=== PATIENT | male | born 1950 | race Caucasian/White ===

== ENCOUNTER → 2020-10-10 12:25 | Outpatient (BNVA) | payer MEDICAID, MEDICARE, SELFPAY | PROVIDERS: PCP Internal Medicine; Visit Provider Urology ==

== ENCOUNTER → 2021-04-11 08:49 | Outpatient (BNVA) | payer MEDICARE, MEDICAID, SELFPAY | PROVIDERS: PCP Internal Medicine; Visit Provider Urology | DX: C61 Malignant neoplasm of prostate (principal) | CPT/HCPCS: Q3014 ==

== ENCOUNTER → 2021-10-16 11:25 | Outpatient (BNVA) | payer MEDICARE, MEDICAID, SELFPAY | PROVIDERS: PCP Internal Medicine; Visit Provider Urology | DX: C61 Malignant neoplasm of prostate (principal); N40.1 Benign prostatic hyperplasia with lower urinary tract symptoms; R35.0 Frequency of micturition; R39.15 Urgency of urination | CPT/HCPCS: 51798; 99212 ==

== ENCOUNTER → 2022-04-23 13:29 | Outpatient (BNVA) | payer MEDICARE, MEDICAID, SELFPAY | PROVIDERS: PCP Internal Medicine; Visit Provider Urology | DX: C61 Malignant neoplasm of prostate (principal); N40.1 Benign prostatic hyperplasia with lower urinary tract symptoms; N13.8 Other obstructive and reflux uropathy | CPT/HCPCS: 51798; 99212 ==

== ENCOUNTER → 2022-10-22 13:55 | Outpatient (BNVA) | payer MEDICARE, SELFPAY | PROVIDERS: PCP Internal Medicine; Visit Provider Urology | DX: C61 Malignant neoplasm of prostate (principal) | CPT/HCPCS: 51798; 99212 ==

== ENCOUNTER 2023-04-23 15:41 | Outpatient (AMB) | payer MEDICARE, SELFPAY ==
--- NOTE | 2023-04-23 15:53 | MHC.OFFVIS ---
Intake Intake Visit Reasons: 6m/PSA(set) Intake Note: Patient is Present for Telephone Follow Up Urology Med: Solifenacin Antibiotic Allergy: None Blood Thinner: None Allergies No Known Allergies [No Known Allergies*] Allergy (Verified 10/22/22 14:17) Medication List - Last Reconciled 04/23/23 by Bashir Sharp MD amlodipine 10 mg PO DAILY blood sugar diagnostic (OneTouch Ultra Test strips) As directed glipizide 5 mg PO BID insulin glargine U-300 conc (Toujeo SoloStar U-300 Insulin) units subcut lisinopril 30 mg PO DAILY metformin 1,000 mg PO BID pioglitazone 30 mg PO DAILY rosuvastatin 20 mg PO BEDTIME simvastatin 10 mg PO BEDTIME solifenacin 5 mg PO DAILY 90 days HPI HPI Comments History of Present Illness Details Pritesh is a very pleasant male. He is a patient of Dr. Frost. He is seen for the following urologic conditions - prostate cancer - urinary urge Telemedicine Evaluation 15 min Consultation [employer] Becky Video attempted 10/20 PSA 0.2, 04/21 0.2 Will use VESIcare on as needed basis Otherwise relatively good bladder control Continue with 6 month PSA check for high-grade disease Prostate cancer [place] 8. Initial therapy radiation with 2 years hormone therapy 2014 Here for interval review Prostate cancer diagnosed by Dr. De Dios 2014 [place] score diagnosis 8 Initial therapy 2 years hormone therapy with radiation Associated symptoms of urgency and frequency had been on VESIcare in the past Laboratories - 09/17 0.2, 04/19 0.2, 04/20 0.2, 10/20 0.2, 04/21 0.2 Plan - continue to follow Q 6 months [facility] Medical History HTN (hypertension) Diabetes mellitus, type II Nocturia Prostate tumor Prostate cancer Surgical History History of prostate biopsy Review of Systems Const All systems reviewed & are unremarkable except as noted in HPI and below Reports no additional complaints Resp Reports no additional complaints GI Reports no additional complaints Reports as per HPI Musc Reports no additional complaints Physical Exam Telemedicine evaluation Appropriate responses Regular breathing rate and rhythm HEENT Head: Yes normal to inspection Ears: hearing grossly normal bilaterally Eyes General: appearance normal, both eyes and all related structures Neck Neck: Yes normal visual inspection Chest Chest palpation & inspection: normal inspection of the chest Resp Effort & Inspection: normal respiratory effort and able to speak in complete sentences Assessment & Plan Assessment & Plan (1) BPH loc w urin obs/LUTS: Code(s): N40.1 - Benign prostatic hyperplasia with lower urinary tract symptoms (2) Prostate cancer: Comment: High-grade, external beam radiation 2014 Code(s): C61 - Malignant neoplasm of prostate Plan Six month follow-up PSA Orders: Orders Prostate Specific Antigen 6 Months C61 - Malignant neoplasm of prostate Medications: Refilled solifenacin 5 mg PO DAILY 90 tabs 1RF 90 days Patient Instructions: Imaging studies, laboratory and physical exam results were discussed and reviewed in detail. No major barriers to patient understanding were identified. An opportunity to ask questions regarding the treatment plan was provided. All questions were answered. The patient expressed understanding and agreement with the above treatment plan. The patient is aware they should contact our office by phone for worsening of their current condition or the appearance of new urologic symptoms. Compliance is encouraged with any medications and followup testing that is ordered. It is a privilege to participate in the urologic care of your patient. If you have any questions or concerns regarding treatment for the above conditions, or other urologic issues, please do not hesitate to contact me. The office telephone contact is [phone]. This note is constructed using voice recognition software. While every effort has been made to ensure accuracy validation architect errors may have been included. Yours sincerely, Dr Bashir Sharp MD, [facility] - Urology Providers of Expert, Compassionate Care for the Genitourinary System Telehealth Telehealth Location of provider rendering services: practice address Location of patient: address on file Patient Identification confirmed using: Name, : Yes Telehealth method: video Patient verbally consented to treatment: Yes Patient verbally consented to billing insurance company: Yes Patient informed of any privacy concerns related to visit: Yes Coding Level of Care Code Tele Est Pt Level 3 (71152) Diagnoses BPH loc w urin obs/LUTS N40.1 Prostate cancer C61
== END 2023-04-23 16:00 | disposition home or self-care (01) ==
LOC: HO.HUSH 15:41
PROVIDERS: PCP Internal Medicine; Visit Provider Urology
DX: N40.1 Benign prostatic hyperplasia with lower urinary tract symptoms (principal); C61 Malignant neoplasm of prostate
CPT/HCPCS: 99213

== ENCOUNTER → 2023-04-23 15:41 | Outpatient (BNVA) | payer MEDICARE, SELFPAY | PROVIDERS: PCP Internal Medicine; Visit Provider Urology ==

== ENCOUNTER 2023-10-24 11:33 | Outpatient (AMB) | payer MEDICARE, SELFPAY ==
--- NOTE | 2023-10-24 11:35 | A.OFFVIS_ITS ---
Intake Visit Reasons: 6M PSA(SET)confirmed Intake Note: Patient is Present for PVR/ Urology Med: Solifenacin (Patient states that he is not taking this medication) Antibiotic Allergy:None Blood Thinner: None Last PVR: 0 Todays PVR: 17 Patient states that he still gets up 3-4 times during the night. Allergies No Known Allergies [No Known Allergies*] Allergy (Verified 10/22/22 14:17) HPI Comments Details: Pritesh is a very pleasant male. He is a patient of Dr. Frost. 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 Initial therapy radiation with 2 years hormone therapy 2014 Here for interval review Prostate cancer diagnosed by Dr. De Dios 2014 [place] score diagnosis 8 Initial therapy 2 years hormone therapy with radiation - therapy completed 11/11 Associated symptoms of urgency and frequency had been on VESIcare in the past Laboratories - 09/17 0.2, 04/19 0.2, 04/20 0.2, 10/20 0.2, 04/21 0.2 Plan - continue to follow Q 6 months [facility] Medical History HTN (hypertension) Diabetes mellitus, type II Nocturia Prostate tumor Prostate cancer Surgical History History of prostate biopsy Review of Systems Const Denies chills and Denies fever(s) Card Reports no additional complaints and Denies syncope Resp Denies cough GI Denies abdominal pain and Denies heartburn Reports as per HPI and Denies change in libido Neuro Denies syncope Psych Denies change in libido Endo Denies change in libido Physical Exam Const General: cooperative, healthy appearing, comfortable and no acute distress Orientation/consciousness: patient oriented x3 HEENT Face and sinus: Yes normal facial exam Mouth: moist mucous membranes Neck Neck: Yes normal visual inspection, Yes full ROM and Yes trachea midline Chest Chest palpation & inspection: normal inspection of the chest Resp Effort & Inspection: normal respiratory effort, able to speak in complete sentences and no respiratory distress GI Inspection: Yes normal to inspection Back/Spine/Pelvis Cervical Spine: normal cervical lordosis Thoracic/Lumbar Spine: thoracic and lumbar spine normal to inspection Skin General skin exam: no rashes or lesions noted Neuro General: patient oriented x3, gait normal, tone normal and moves all extremities Extrem General: Yes normal to inspection and Yes capillary refill normal Office Procedures Post Void Residual Post Residual Void Post Void Residual (PVR): 17 80686-Qnid Void Residual by ultrasound Assessment & Plan Assessment & Plan (1) Prostate cancer: Comment: High-grade, external beam radiation 2014 Code(s): C61 - Malignant neoplasm of prostate Category: Medical (2) Bladder instability: Code(s): N32.89 - Other specified disorders of bladder Category: Medical Plan Six-month follow-up PSA Orders: Orders AMB Post Void Residual by ultrasound Today N40.1 - Benign prostatic hyperplasia with lower urinary tract symptoms Medications: New vibegron 75 mg PO DAILY 30 days 30 tabs 1RF N32.89 - Other specified disorders of bladder Patient Instructions: Imaging studies, laboratory and physical exam results were discussed and reviewed in detail. No major barriers to patient understanding were identified. An opportunity to ask questions regarding the treatment plan was provided. All questions were answered. The patient expressed understanding and agreement with the above treatment plan. The patient is aware they should contact our office by phone for worsening of their current condition or the appearance of new urologic symptoms. Compliance is encouraged with any medications and followup testing that is ordered. It is a privilege to participate in the urologic care of your patient. If you have any questions or concerns regarding treatment for the above conditions, or other urologic issues, please do not hesitate to contact me. The office telephone contact is [phone]. This note is constructed using voice recognition software. While every effort has been made to ensure accuracy poultry hatchery man errors may have been included. Yours sincerely, Dr Bashir Sharp MD, [facility] - Urology Providers of Expert, Compassionate Care for the Genitourinary System Coding Level of Care Code Est Pt Level 4 (92134) Diagnoses Prostate cancer C61 Bladder instability N32.89 CPT Codes Post Residual Void - PVR CPT Code: 18643-Yidp Void Residual by ultrasound ([id number])
== END 2023-10-24 11:50 | disposition home or self-care (01) ==
PROVIDERS: PCP Internal Medicine; Visit Provider Urology
DX: C61 Malignant neoplasm of prostate (principal); N32.89 Other specified disorders of bladder
CPT/HCPCS: 99213

== ENCOUNTER → 2023-10-24 11:33 | Outpatient (BNVA) | payer MEDICARE, SELFPAY | PROVIDERS: PCP Internal Medicine; Visit Provider Urology | DX: C61 Malignant neoplasm of prostate (principal); N32.89 Other specified disorders of bladder; N40.1 Benign prostatic hyperplasia with lower urinary tract symptoms; R39.15 Urgency of urination | CPT/HCPCS: 51798; 99212 ==

== ENCOUNTER 2024-04-13 09:45 | Outpatient (AMB) | payer MEDICARE, SELFPAY ==
--- NOTE | 2024-04-13 09:41 | MHC.OFFVIS ---
Intake Visit Reasons: 6M PSA(set) Intake Note: Patient is present for 6M F/U PSA Urology Medication:SOLIFENACIN, VIBEGRON Antibiotic Allergy:NONE Blood Thinner:NONE Roll On Man Required: No Allergies No Known Allergies [No Known Allergies*] Allergy (Verified 04/13/24 09:42) HPI Comments Details: Pritesh is a very pleasant male. He is a patient of Dr. Frost. 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 Initial therapy radiation with 2 years hormone therapy 2014 Here for interval review Prostate cancer diagnosed by Dr. De Dios 2014 [place] score diagnosis 8 Initial therapy 2 years hormone therapy with radiation - therapy completed 11/11 Associated symptoms of urgency and frequency had been on VESIcare in the past Laboratories - 09/17 0.2, 04/19 0.2, 04/20 0.2, 10/20 0.2, 04/21 0.2 Plan - continue to follow Q 6 months [facility] Medical History HTN (hypertension) Diabetes mellitus, type II Nocturia Prostate tumor Prostate cancer Surgical History History of prostate biopsy Review of Systems Const All systems reviewed & are unremarkable except as noted in HPI and below Reports no additional complaints Resp Reports no additional complaints GI Reports no additional complaints Reports as per HPI Musc Reports no additional complaints Physical Exam Telemedicine evaluation Appropriate responses Regular breathing rate and rhythm HEENT Head: Yes normal to inspection Ears: hearing grossly normal bilaterally Eyes General: appearance normal, both eyes and all related structures Neck Neck: Yes normal visual inspection Chest Chest palpation & inspection: normal inspection of the chest Resp Effort & Inspection: normal respiratory effort and able to speak in complete sentences Telehealth Telehealth Telehealth Platform: [employer] Location of provider rendering services: practice address Location of patient: address on file Patient Identification confirmed using: Name, : Yes Telehealth method: video Patient verbally consented to treatment: Yes Patient verbally consented to billing insurance company: Yes Patient informed of any privacy concerns related to visit: Yes Minutes spent on Phone/Video with Pt.: 15 Assessment & Plan Assessment & Plan (1) Bladder instability: Code(s): N32.89 - Other specified disorders of bladder Category: Medical (2) Prostate cancer: Comment: High-grade, external beam radiation 2014 Code(s): C61 - Malignant neoplasm of prostate Category: Medical (3) BPH loc w urin obs/LUTS: Code(s): N40.1 - Benign prostatic hyperplasia with lower urinary tract symptoms Category: Medical Plan Six-month follow-up PSA office Orders: Orders Prostate Specific Antigen 6 Months C61 - Malignant neoplasm of prostate Medications: Changed From vibegron 75 mg PO DAILY 30 days 30 tabs 1RF N32.89 - Other specified disorders of bladder To vibegron 75 mg PO DAILY 90 days 90 tabs 1RF N32.89 - Other specified disorders of bladder Refilled solifenacin 5 mg PO DAILY 90 days 90 tabs 1RF Patient Instructions: Imaging studies, laboratory and physical exam results were discussed and reviewed in detail. No major barriers to patient understanding were identified. An opportunity to ask questions regarding the treatment plan was provided. All questions were answered. The patient expressed understanding and agreement with the above treatment plan. The patient is aware they should contact our office by phone for worsening of their current condition or the appearance of new urologic symptoms. Compliance is encouraged with any medications and followup testing that is ordered. It is a privilege to participate in the urologic care of your patient. If you have any questions or concerns regarding treatment for the above conditions, or other urologic issues, please do not hesitate to contact me. The office telephone contact is [phone]. This note is constructed using voice recognition software. While every effort has been made to ensure accuracy manufacturing quality inspector errors may have been included. Yours sincerely, Dr Bashir Sharp MD, [facility] - Urology Providers of Expert, Compassionate Care for the Genitourinary System Coding Level of Care Code Tele Est Pt Level 3 (33522) Diagnoses Bladder instability N32.89 Prostate cancer C61 BPH loc w urin obs/LUTS N40.1
== END 2024-04-13 13:42 | disposition home or self-care (01) ==
LOC: HO.HUSH 09:45
PROVIDERS: PCP Internal Medicine; Visit Provider Urology
DX: N32.89 Other specified disorders of bladder (principal); C61 Malignant neoplasm of prostate
CPT/HCPCS: 99213

== ENCOUNTER → 2024-04-13 09:45 | Outpatient (BNVA) | payer MEDICARE, SELFPAY | PROVIDERS: PCP Internal Medicine; Visit Provider Urology ==

== ENCOUNTER 2024-10-12 11:42 | Outpatient (AMB) | payer MEDICARE, SELFPAY ==
--- NOTE | 2024-10-12 11:45 | MHC.OFFVIS ---
Intake Visit Reasons: 6m/PSA Intake Note: Patient is present for 6M/PSA Urology Medication:SOLIFENACIN,VIBEGRON Antibiotic Allergy:NONE Blood Thinner:NONE Towel Folder Required: No Allergies No Known Allergies [No Known Allergies*] Allergy (Verified 10/12/24 11:46) HPI Comments Details: Pritesh is a very pleasant male. He is a patient of Dr. Frost. He is seen for the following urologic conditions - prostate cancer - urinary urge with bladder stability Six-month follow-up Current bladder instability treated with combination Gemtesa and solifenacin primarily for nocturia greater than 3 times per night Uses Gemtesa intermittently with good benefit 10/20 PSA 0.2, 04/21 0.2, 10/20 0.2, 04/22 0.2 Continues with q.6 month PSA check out to 10 years Bladder instability in setting of radiation cystitis with insulin-dependent diabetes Secondary to radiation cystitis Responds well to anticholinergic Uses physical on an as-needed basis Prostate cancer [place] 8. Initial therapy radiation with 2 years hormone therapy 2014 Here for interval review Prostate cancer diagnosed by Dr. De Dios 2014 [place] score diagnosis 8 Initial therapy 2 years hormone therapy with radiation - therapy completed 11/11 Associated symptoms of urgency and frequency had been on VESIcare in the past Laboratories - 09/17 0.2, 04/19 0.2, 04/20 0.2, 10/20 0.2, 04/21 0.2 Plan - continue to follow Q 6 months [facility] Medical History HTN (hypertension) Diabetes mellitus, type II Nocturia Prostate tumor Prostate cancer Surgical History History of prostate biopsy Review of Systems Const Denies chills and Denies fever(s) Card Reports no additional complaints and Denies syncope Resp Denies cough GI Denies abdominal pain and Denies heartburn Reports as per HPI and Denies change in libido Neuro Denies syncope Psych Denies change in libido Endo Denies change in libido Physical Exam Const General: cooperative, healthy appearing, comfortable and no acute distress Orientation/consciousness: patient oriented x3 HEENT Face and sinus: Yes normal facial exam Mouth: moist mucous membranes Neck Neck: Yes normal visual inspection, Yes full ROM and Yes trachea midline Chest Chest palpation & inspection: normal inspection of the chest Resp Effort & Inspection: normal respiratory effort, able to speak in complete sentences and no respiratory distress GI Inspection: Yes normal to inspection Back/Spine/Pelvis Cervical Spine: normal cervical lordosis Thoracic/Lumbar Spine: thoracic and lumbar spine normal to inspection Skin General skin exam: no rashes or lesions noted Neuro General: patient oriented x3, gait normal, tone normal and moves all extremities Extrem General: Yes normal to inspection and Yes capillary refill normal Results AMB Urinalysis, Automated UA Leukoctes 0 Chuy/uL Last Edit by SALAZAR Beard on 10/12/24 11:57 UA Nitrite Negative Last Edit by Nelson Brown CCM on 10/12/24 11:57 UA Urobilinogen 0.2 mg/dL Last Edit by Nelson Brown CCM on 10/12/24 11:57 UA Protein 0 mg/dL Last Edit by Nelson Brown [facility] on 10/12/24 11:57 UA pH 6.0 Last Edit by Nelson Brown [facility] on 10/12/24 11:57 UA Blood 0 Virgil/uL Last Edit by Nelson Brown CCM on 10/12/24 11:57 UA Specific [place] 1.020 Last Edit by Nelson Brown CCM on 10/12/24 11:57 UA Ketone Negative Last Edit by Nelson Brown CCM on 10/12/24 11:57 UA Bilirubin 0 mg/dL Last Edit by Nelson Brown [facility] on 10/12/24 11:57 UA Glucose 0 mg/dL Last Edit by Nelson Brown [facility] on 10/12/24 11:57 Results Reviewed Results Reviewed: Laboratory Last Values Urine pH (Auto) 6.0 10/12/24 11:57 Specific [place] (Auto) 1.020 10/12/24 11:57 Urine Protein (Auto) 0 mg/dL 10/12/24 11:57 Glucose (UA)(Auto) 0 mg/dL 10/12/24 11:57 Urine Ketones (Auto) Negative 10/12/24 11:57 Urine Blood (Auto) 0 Virgil/uL 10/12/24 11:57 Urine Nitrite (Auto) Negative 10/12/24 11:57 Urine Bilirubin (Auto) 0 mg/dL 10/12/24 11:57 Urine Urobilinogen (Auto) 0.2 mg/dL 10/12/24 11:57 Leukocyte Esterase (Auto) 0 Chuy/uL 10/12/24 11:57 Assessment & Plan Assessment & Plan (1) Prostate cancer: Comment: High-grade, external beam radiation 2014 Code(s): C61 - Malignant neoplasm of prostate Category: Medical (2) Bladder instability: Code(s): N32.89 - Other specified disorders of bladder Category: Medical (3) Nocturia more than twice per night: Code(s): R35.1 - Nocturia Category: Medical (4) 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 While every effort has been made to ensure accuracy knitting inspector errors may have been included. Imaging studies, laboratory and physical exam results were discussed and reviewed in detail. No major barriers to patient understanding were identified. An opportunity to ask questions regarding the treatment plan was provided. All questions were answered. The patient expressed understanding and agreement with the above treatment plan. The patient is aware they should contact our office by phone for worsening of their current condition or the appearance of new urologic symptoms. Compliance is encouraged with any medications and followup testing that is ordered. It is a privilege to participate in the urologic care of your patient. If you have any questions or concerns regarding treatment for the above conditions, or other urologic issues, please do not hesitate to contact me. The office telephone contact is [phone]. Sincerely, Dr Bashir Sharp MD, [facility] - Urology Compassionate Specialist Care for the Genitourinary System Coding Level of Care Code Est Pt Level 3 (06448) Complex EM visit Add On G2211 Diagnoses Prostate cancer C61 Bladder instability N32.89 Nocturia more than twice per night R35.1 Radiation cystitis N30.40
--- OUTSIDE RECORDS SUMMARY | 2024-10-12 14:33 | XMS_ITS ---
Author Name [facility] Organization Unknown History of Medication Use Medication Directions Dispensed Refills Start Date End Date Stat metFORMIN (GLUCOPHAGE) 1000 MG tablet Take 1 tablet (1,000 mg total) by mouth 2 (two) times a day with meals. 09/14/2022 active rosuvastatin (CRESTOR) 20 MG tablet Take 1 tablet (20 mg total) by mouth daily. 09/14/2022 active Toujeo SoloStar 300 UNIT/ML prefilled pen injection ADMINISTER 25 UNITS UNDER THE SKIN EVERY NIGHT 11/08/2022 active ZeolifeTouch Ultra test strip Check 3times a day 07/14/2020 active Problems Problem Status Onset Date Problem Type Date of Resolution Source Colon cancer screening active 2022-04-24 ProblemAct [facility] Screening for abdominal aortic aneurysm active 2022-04-24 ProblemAct [facility] Essential hypertension active 2020-08-15 ProblemAct [facility] Leukocytosis, unspecified type active EncounterDiagnosisAct [facility] CCT Need for pneumococcal vaccination active 2022-04-24 ProblemAct [facility] History of prostate cancer active 2022-04-24 ProblemAct [facility] Dyslipidemia active 2022-04-24 ProblemAct [facility] DM type 2 with diabetic mixed hyperlipidemia active 2022-04-24 ProblemAct [facility] Immunizations Vaccine Date Source Lot Number Status Pneumococcal Conjugate 20-Valent 04/24/2022 [facility] [id number] completed Encounters Encounter Type Encounter Reason Primary Diagnosis Location Date Ambulatory Type 2 diabetes mellitus with other specified complication Type 2 diabetes mellitus with other specified complication [facility] 08/17/2024 Ambulatory Type 2 diabetes mellitus with other specified complication Type 2 diabetes mellitus with other specified complication [facility] 04/12/2024 Ambulatory Type 2 diabetes mellitus with other specified complication Type 2 diabetes mellitus with other specified complication [facility] 12/10/2023 Ambulatory Type 2 diabetes mellitus with other specified complication Type 2 diabetes mellitus with other specified complication [facility] 08/08/2023 Ambulatory [facility] 09/18/ 2023 Ambulatory Type 2 diabetes mellitus with other specified complication Type 2 diabetes mellitus with other specified complication [facility] 03/11/2023 Ambulatory Encounter for ge neral adult medical examination without abnormal findings [email or web address] 11/08/2022 Ambulatory Essential (prima ry) hypertension [email or web address] 04/24/2022 Ambulatory Encounter for ge neral adult medical examination without abnormal findings [facility] 09/11/2021 Ambulatory Type 2 diabetes mellitus without complications [facility] 08/13/2021 Ambulatory Male erectile dysfunction, unspecified [facility] 04/12/2021 Care Team Organization Name Specialty Phone Email Start Date End [facility] 07/20/2023 [facility] 03/17/2023 [email or web address] 11/08/202203/11 [facility] 11/08/202209/25 [email or web address] 04/24/2022 09/26/19 [email or web address] 04/12/2021 [email or web address] 04/12/2021 04/24/20 22 [facility]
--- OUTSIDE RECORDS SUMMARY | 2024-10-12 14:33 | XMS_ITS | Encounter Summary ---
[place] [address] Care Team Providers Care Procurement Forester Name Role Phone Angelika Man MD Primary Care Provider +1- [phone] Encounter Details Date Type Department Care Team (Late Contact Info) Description 04/26/2024 Scanned Document [address] [phone] Angelika Man MD [address] [place] [address] Social History Tobacco Use Types Packs/Day Years Used Date Smoking Tobacco: Former Smokeless Tobacco: Former Comments:quit 30 years Alcohol Use Standard Drinks/Week Comments Yes 0 (1 standard drink = 0.6 oz pur e alcohol) rare PHQ-2 Answer Date Recorded PHQ-2 Total Score 0 11/08/2022 Sex and Gender Information Value Date Recorded Sex Assigned at Not on file Gender Identity Not on file Sexual Orientation Not on file documented as of this encounter Plan of Treatment Upcoming Encounters Date Type Department Care Team (Late Contact Info) Description 12/15/2024 2:30 PM EDT Office Visit [address] [phone] Angelika Man MD [address] [place] [phone] 12/20/2024 1:15 PM EDT Consult [facility] Endocrinology [place] [address] [place] [address] Angelika Man MD [address] [place] [address] Jamshid Tom MD [address] [place] [address] documented as of this encounter Visit Diagnoses Not on filedocumented in this encounter Care Teams Procurement Forester Relationship Specialty Start Date End Date Angelika Man MD [address] [place] [address] PCP - General Internal Medicine 11/08/22 documented as of this encounter
--- OUTSIDE RECORDS SUMMARY | 2024-10-12 14:33 | XMS_ITS | Encounter Summary ---
[place] [address] Care Team Providers Care Drum Stock Clerk Name Role Phone Angelika Man MD Primary Care Provider +1- [phone] Reason for Visit * Reason Comments ac patient needs scheduling Encounter Details Date Type Department Care Team (Late st Contact Info) Description 08/23/[address] [phone] Provider, Generic ac patient needs scheduling Social History Tobacco Use Types Packs/Day Years [...] on file documented as of this encounter Miscellaneous Notes * Telephone Encounter - Roberto Carlos Romo - 08/26/2024 10:53 AM EST Patient declined scheduling. documented in this encounter Plan of Treatment Upcoming Encounters Date Type Department Care Team (Late Contact Info) Description 12/15/2024 2:30 PM EDT Office Visit [address] [place] [phone] Angelika Man MD [address] [place] [phone] 12/20/2024 1:15 PM EDT Consult [facility] Endocrinology [place] [address] [place] [phone] Angelika Man MD [address] [place] [address] Jamshid Tom MD [address] [place] [address] documented as of this encounter Visit Diagnoses Not on filedocumented in this encounter Care Teams Drum Stock Clerk Relationship Specialty Start Date End Date Angelika Man MD [address] [place] [address] PCP - General Internal Medicine 11/08/22 documented as of this encounter
--- OUTSIDE RECORDS SUMMARY | 2024-10-12 14:33 | XMS_ITS | Encounter Summary ---
Author Organization [place] [id number] Care Team Providers Care Retail Stock Clerk Name Role Phone Angelika Man MD Primary Care Provider +1- [phone] Reason for Visit * Reason Comments Appointment Encounter Details Date Type Department Care Team (Late Contact Info) Description 04/12/2024 Telephone [facility] [address] [place] [address] Jamshid Tom MD [address] [place] [address] Appointment Social History Tobacco Use Types Packs/Day Years [...] Description 12/15/2024 2:30 PM EDT Office Visit [address] [phone] Angelika Man MD [address] [place] [address] 12/20/2024 1:15 PM EDT Consult [facility] Endocrinology [place] [address] [place] [address] Angelika Man MD [address] [place] [address] Jamshid Tom MD [address] [place] [address] documented as of this encounter Visit Diagnoses Not on filedocumented in this encounter Care Teams Retail Stock Clerk Relationship Specialty Start Date End Date Angelika Man MD [address] [place] [address] PCP - General Internal Medicine 11/08/22 documented as of this encounter
--- OUTSIDE RECORDS SUMMARY | 2024-10-12 14:33 | XMS_ITS | Clinical Summary ---
Author Organization [facility] Address [address] [place] [address] Care Team Providers Care Mobile Mechanic Name Role Phone Angelika Man MD Primary Care Provider +1- [phone] Allergies No known active allergies Medications Medication Sig Dispensed Refills Start Date End Date Status Lancets (OneTouch Delica Plus [id number]) Misc 07/14/2020 Active Insulin Pen Needle 32G X 4 MM MiscIndications:Type 2 diabetes mellitus without complication, with long-term current use of insulin (HCC) Use every night. 100 pen needle 2 03/16/2021 Active OneTouch Ultra test stripIndications:DM type 2 with diabetic mixed hyperlipidemia (HCC) Check 3 times a day 300 test strip 3 09/16/2023 Active glipiZIDE (GLUCOTROL) 5 MG tabletIndications:Ty pe 2 diabetes mellitus without complication, with long-term current use of insulin (HCC),Essential hypertension TAKE 1 TABLET(5 MG) BY MOUTH TWICE DAILY BEFORE MEALS 180 tablet 2 02/24/2024 Active lisinopril (PRINIVIL,ZeSTRIL) 30 MG tabletIndications:Ty pe 2 diabetes mellitus without complication, with long-term current use of insulin ([facility]),Essential hypertension TAKE 1 TABLET(30 MG) BY MOUTH DAILY 90 tablet 2 02/24/2024 Active cephalexin (KEFLEX) 500 MG capsule Take 1 capsule (500 mg total) by mouth 4 (four) times a day. 04/09/2024 Active amLODIPine (NORVASC) 10 MG tabletIndications:Es sential hypertension TAKE 1 TABLET(10 MG) BY MOUTH DAILY 90 tablet 1 05/24/2024 Active Aspirin Low Dose 81 MG EC tabletIndications:Es sential hypertension,Type 2 diabetes mellitus without complication, with long-term current use of insulin (HCC) TAKE ONE TABLET BY MOUTH DAILY. 90 tablet 2 05/24/2024 Active Continuous Glucose Clinical Unit Coordinator (Dexcom G7 Clinical Unit Coordinator) DeviceIndications:Ty pe 2 diabetes mellitus with other specified complication, unspecified whether detention insulin use (HCC) Use with sensor 1 each 08/23/2024 Active Toujeo SoloStar 300 UNIT/ML prefilled pen injectionIndications :Type 2 diabetes mellitus without complication, with long-term current use of insulin ([facility]) ADMINISTER 25 UNITS UNDER THE SKIN EVERY NIGHT 4.5 mL 3 08/26/2024 Active rosuvastatin (CRESTOR) 20 MG tabletIndications:Ty pe 2 diabetes mellitus without complication, with long-term current use of insulin ([facility]),Essential hypertension,Other hyperlipidemia TAKE 1 TABLET(20 MG) BY MOUTH DAILY 90 tablet 1 08/26/2024 Active pioglitazone (ACTOS) 30 MG tabletIndications:Ty pe 2 diabetes mellitus without complication, with long-term current use of insulin ([facility]),Essential hypertension TAKE 1 TABLET(30 MG) BY MOUTH DAILY 90 tablet 08/26/2024 Active metFORMIN (GLUCOPHAGE) 1000 MG tabletIndications:Ty pe 2 diabetes mellitus without complication, with long-term current use of insulin ([facility]),Essential hypertension TAKE 1 TABLET(1000 MG) BY MOUTH TWICE DAILY WITH MEALS 180 tablet 1 08/26/2024 Active Continuous Glucose Sensor (Dexcom G7 Sensor) MiscIndications:Type 2 diabetes mellitus with other specified complication, unspecified whether information systems planner insulin use (HCC) Use with credit review analyst 3 each 5 09/14/2024 Active Active Problems Problem Noted Date Diagnosed Date DM type 2 with diabetic mixed hyperlipidemia Assessment & Plan (04/24/2022 2:05 PM EDT): Eye exam done by [employer] in [place].no reported retinopathy. Will request fundal exam report to be sent to me at next exam in Jun 2022 Dyslipidemia 04/24/2022 History of prostate cancer 04/24/2022 Assessment & Plan (04/24/2022 1:57 PM EDT): Remains cancer free since rx with radiation 6 years ago. Sees urology/Dr. Stevenson in [place] every 6 months for EDWIN and labs. Need for influenza vaccination 04/24/2022 Assessment & Plan (04/24/2022 2:00 PM EDT): Reports already having received the vaccine at local pharmacy. Colon cancer screening 04/24/2022 Assessment & Plan (04/24/2022 2:02 PM EDT): Reports having had a colonoscopy in 2018 through [facility] and was told he did not need a repeat study. Screening for abdominal aortic aneurysm 04/24/20 Assessment & Plan (04/24/2022 2:05 PM EDT): Test ordered. Essential hypertension 08/15/2020 Resolved Problems Problem Noted Date Diagnosed Date Resolved Date Need for pneumococcal vaccination 04/24/2022 09/10/2023 Encounters Date Type Department Care Team Description 09/09/[address] [phone] Angelika Man MD Type 2 diabetes mellitus with other specified complication, unspecified whether information systems planner insulin use (HCC) 08/25/[address] [address] Angelika Man MD Type 2 diabetes mellitus without complication, with long-term current use of insulin (HCC); Essential hypertension; Other hyperlipidemia 08/23/[address] [phone] Angelika Man MD 08/23/[address] [address] Provider, Generic ac patient needs scheduling 08/23/2024 Orders Only [address] [phone] Angelika Man MD Type 2 diabetes mellitus with other specified complication, unspecified whether information systems planner insulin use (HCC) (Primary Dx) 08/17/2024 3:30 PM EST Office Visit [address] [place] [address] Angelika Man MD Type 2 diabetes mellitus with other specified complication, unspecified whether detention insulin use (HCC) (Primary Dx); Essential hypertension; Hypercholesterolemia; Screening for AAA (abdominal aortic aneurysm) 08/17/2024 Travel 08/11/2024 Orders Only [address] [phone] Angelika Man MD 08/04/[address] [place] [address] Angelika Man MD Referral from Last 3 Months Immunizations Name Administration Dates Next Due Pneumococcal Conjugate 20-Valent 04/24/2022 Family History Medical History Relation Name Comments Heart attack Father Ovarian cancer Mother Relation Name Status Comments Father Mother Social History Tobacco Use Types Packs/Day Years Used Date Smoking Tobacco: Former Smokeless Tobacco: Former Tobacco Cessation:Counseling Given: Not Answered Comments:quit 30 years Alcohol Use Standard Drinks/Week Comments Yes 0 (1 standard drink = 0.6 oz pur e alcohol) rare PHQ-2 Answer Date Recorded PHQ-2 Total Score 0 11/08/2022 Sex and Gender Information Value Date Recorded Sex Assigned at Not on file Gender Identity Not on file Sexual Orientation Not on file Last Filed Vital Signs Vital Sign Reading Time Taken Comments Blood Pressure 138/70 08/17/2024 3:11 PM EST Pulse 68 08/17/2024 3:11 PM EST Temperature 36.6 ??C (97.9 ??F) 08/17/2024 3:11 PM ES T Respiratory Rate 16 08/17/2024 3:11 PM EST Oxygen Saturation 96% 08/17/2024 3:11 PM EST Inhaled Oxygen Concentration - - Weight 79.7 kg (175 lb 9.6 oz) 08/17/2024 3:11 P M EST Height 180.3 cm (5' 10.98 ) 08/17/2024 3:[address] Body Mass Index 24.5 08/17/2024 3:11 PM EST Plan of Treatment Upcoming Encounters Date Type Department Care Team (Late st Contact Info) Description 12/15/2024 2:30 PM EDT Office Visit [facility] [place] [address] [place] [phone] Angelika Man MD [address] [place] [address] 12/20/2024 1:15 PM EDT Consult [facility] Endocrinology [place] [address] [place] [phone] Angelika Man MD [address] [place] [address] Jamshid Tom MD [address] [place] [address] Health Maintenance Due Date Last Done Comments Hepatitis C Virus Screening 1951 Ophthalmology Exam 1961 DTaP/Tdap/Td Vaccines (1 - Tdap) 1970 Zoster (Shingles) Vaccine (1 of 2) 2001 RSV Vaccine 60 years and older and Patients (1 - Risk 60-74 years 1-dose series) 2011 Abdominal Aortic Aneurysm (AAA) Screening 2016 Diabetic Self-Management Training (DSMT) 08/15/2020 Annual Wellness Visit 11/09/2023 11/08/2022 , 09/11/2021, 09/05/2020 Physical 11/09/2023 11/08/2022, 08/28, 09/05/2020 Influenza Vaccine 01/29/2024 COVID-19 Vaccine ( season) 2024 Medical Nutrition Therapy (MNT) 06/30/2024 Hemoglobin A1C 07/07/2024 04/06/2024, 11/28, 08/08/2023, Additional history exists Lipid Panel 12/04/2024 12/05/2023, 07/0 11/2022, 04/04/2021 Microalbumin/Creatinine Ratio Urine 12/04/2024 12/05/2023 Creatinine with GFR 04/06/2025 04/06/2024, 12/05/2023, 01/02/2023, Additional history exists Foot Exam 08/17/2025 08/17/2024, 07/31, 04/24/2022 Colonoscopy 07/04/2027 07/04/2017 (Prev iously Completed) Pneumococcal Vaccines 50+ Completed 04/24/2022 Hepatitis B Vaccines Aged Out No long er eligible based on patient's age to complete this topic Procedures Procedure Name Priority Date/Time Associated Diagnosis Comments HEMOGLOBIN A1C Routine 04/06/2024 3:07 PM EDT Type 2 diabetes mellitus with other specified complication, unspecified whether detention insulin use (HCC) COMPREHENSIVE METABOLIC PANEL Routine 04/06/2024 3:07 PM EDT Type 2 diabetes mellitus with other specified complication, unspecified whether detention insulin use (HCC) MICROALBUMIN, CREATININE, URINE, RANDOM Routine 12/05/2023 2:47 PM EDT Type 2 diabetes mellitus with other specified complication, unspecified whether detention insulin use (HCC) LIPID PANEL REFLEX DIRECT LDL Routine 12/05/2023 2:47 PM EDT Type 2 diabetes mellitus with other specified complication, unspecified whether information systems planner insulin use (HCC) from Last 3 Months or Most Recently Relevant to Health Maintenance Results * (ABNORMAL) Hemoglobin A1C (04/06/2024 3:07 PM EDT) Hemoglobin A1C 10.3(H) <5.7 % of total Hgb [facility] [employer] Comment: For someone without known diabetes, a hemoglobin A1c value of 6.5% or greater indicates that they may have diabetes and this should be confirmed with a follow-up test. For someone with known diabetes, a value <7% indicates that their diabetes is well controlled and a value greater than or equal to 7% indicates suboptimal control. A1c targets should be individualized based on duration of diabetes, age, comorbid conditions, and other considerations. Currently, no consensus exists regarding use of hemoglobin A1c for diagnosis of diabetes for children. ?? Blood 04/06/2024 3:07 PM EDT 04/06/2024 3:07 PM EDT Narrative [facility] - 04/07/2024 4:35 AM EDT FASTING:YES FASTING: YES Angelika Man MD LAB BLOOD ORDERABL ES [facility] [address] [place] [phone] * (ABNORMAL) Comprehensive Metabolic Panel (04/06/2024 3:07 PM EDT) Pathologist [facility] Glucose 194(H) 65 - 99 mg/dL [employer] Comment: ? Fasting reference interval For someone without known diabetes, a glucose value >125 mg/dL indicates that they may have diabetes and this should be confirmed with a follow-up test. Blood Urea Nitrogen (BUN) 14 7 - 25 mg/dL [employer] Creatinine 1.02 0.70 - 1.28 mg/dL [employer] Creatinine w/ eGFR 78 > OR = 60 mL/min/1. 73m2 [employer] BUN/Creatinine Ratio SEE NOTE: 6 - 22 (calc) [employer] Comment: ?? Not Reported: BUN and Creatinine are within ?? reference range. ? Sodium 136 135 - 146 mmol/L [employer] [facility] Potassium 4.9 3.5 - 5.3 mmol/L [employer] Chloride 97(L) 98 - 110 mmol/L [employer] CO2 32 20 - 32 mmol/L [employer] [facility] Calcium 10.5(H) 8.6 - 10.3 mg/dL [employer] Protein, Total 7.3 6.1 - 8.1 g/dL [employer] Albumin 4.6 3.6 - 5.1 g/dL [employer] [facility] Globulin 2.7 1.9 - 3.7 g/dL (calc) [employer] [facility] Albumin/Globuli n Ratio 1.7 1.0 - 2.5 (calc) [employer] Bilirubin, Total 0.4 0.2 - 1.2 mg/dL [employer] [facility] Alkaline Phosphatase 79 35 - 144 U/L [employer] [facility] Aspartate Aminotrans (AST) 13 10 - 35 U/L [employer] Alanine Aminotrans (ALT) 16 9 - 46 U/L [employer] [facility] Blood 04/06/2024 3:07 PM EDT 04/06/2024 3:07 PM EDT Narrative [facility] - 04/07/2024 4:35 AM EDT FASTING:YES FASTING: YES Angelika Man MD LAB BLOOD ORDERABL ES [facility] [employer] [address] [place] [address] * Lipid Panel Reflex Direct LDL (12/05/2023 2:47 PM EDT) Cholesterol, Total 130 <200 mg/dL [employer] [facility] Cholesterol, HDL 55 > OR = 40 mg/dL [employer] [facility] Triglycerides 70 <150 mg/dL [employer] [facility] LDL Cholesterol 60 mg/dL (calc) [employer] [facility] Comment: Reference range: <100 Desirable range <100 mg/dL for primary prevention; ?? <70 mg/dL for patients with CHD or diabetic patients with > or = 2 CHD risk factors. LDL-C is now calculated using the Mc calculation, which is a validated novel method providing better accuracy than the Friedewald equation in the estimation of LDL-C. Artem BARRIOS et al. SHIRIN. 2013;310(19): 9535-6876 (http://education.Appear.HookLogic/faq/VJG032) Cholesterol/HDL Ratio 2.4 <5.0 (calc) [employer] [facility] Non HDL Chol. (LDL+VLDL) 75 <130 mg/dL (calc) [employer] [facility] Comment: For patients with diabetes plus 1 major ASCVD risk factor, treating to a non-HDL-C goal of <100 mg/dL (LDL-C of <70 mg/dL) is considered a therapeutic option. Blood specimen (specimen) Blood specimen / Unknown 12/05/2023 2:47 PM EDT 12/05/2023 2:49 PM EDT Narrative [facility] - 12/06/2023 5:31 PM EDT FASTING:YES FASTING: YES Angelika Man MD LAB BLOOD ORDERABL ES Performing Organization Address [facility] de Phone Number [facility] [address] [place] [phone] * Microalbumin, Creatinine, Urine, Random (12/05/2023 2:47 PM EDT) Creatinine, Urine, Random 84 20 - 320 mg/dL [employer] Microalbumin, Urine, Random 0.5 See Note: mg/dL [employer] [facility] Comment: Reference Range: Reference Range Not established Microalbumin/Creat inine Ratio 6 <30 mg/g creat [employer] [facility] Comment: The ADA defines abnormalities in albumin excretion as follows: Albuminuria Category ?Result (mg/g creatinine) Normal to Mildly increased ?? <30 Moderately increased ? 30-299 Severely increased ? > OR = 300 The ADA recommends that at least two of three specimens collected within a 3-6 month period be abnormal before considering a patient to be within a diagnostic category. Urine Urine specimen obtained by clean catch procedure / Unknown 12/05/2023 2:47 PM EDT 12/05/2023 2:49 PM EDT Narrative [facility] - 12/06/2023 5:31 PM EDT FASTING:YES FASTING: YES Angelika Man MD URINE ORDERABLES Performing Organization Address [facility]/ZIP Co de Phone Number [employer] [address] [place] [phone] from Last 3 Months or Most Recently Relevant to Health Maintenance Care Teams Mobile Mechanic Relationship Specialty Start Date End Date Angelika Man MD [address] [place] [address] PCP - General Internal Medicine 11/08/22
== END 2024-10-12 12:08 | disposition home or self-care (01) ==
LOC: HO.HUSH 11:42
PROVIDERS: PCP Internal Medicine; Visit Provider Urology
DX: C61 Malignant neoplasm of prostate (principal); N32.89 Other specified disorders of bladder; R35.1 Nocturia; N30.40 Irradiation cystitis without hematuria; Z13.9 Encounter for screening, unspecified
CPT/HCPCS: 99213; G2211

== ENCOUNTER → 2024-10-12 11:42 | Outpatient (BNVA) | payer MEDICARE, SELFPAY | PROVIDERS: PCP Internal Medicine; Visit Provider Urology | DX: C61 Malignant neoplasm of prostate (principal); R39.15 Urgency of urination; R35.1 Nocturia; N32.89 Other specified disorders of bladder; N30.40 Irradiation cystitis without hematuria | CPT/HCPCS: 81003; 99212 ==

== ENCOUNTER 2025-04-13 13:27 | Outpatient (AMB) | payer MEDICARE, SELFPAY ==
--- NOTE | 2025-04-13 13:30 | A.OFFVIS_ITS ---
Intake Visit Reasons: 6m/PSA Intake Note: Patient is present for 6M/PSA Urology Medication:SOLIFENACIN,VIBEGRON Antibiotic Allergy:NONE Blood Thinner:NONE Handkerchief Maker Required: No Accompanied by: Self / Same As Patient Allergies No Known Allergies (No Known Allergies*) Allergy (Verified 04/13/25 13:30) HPI Comments Details: Pritesh is a very pleasant male. He is a patient of Dr. Frost. 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 Initial therapy radiation with 2 years hormone therapy 2014 Here for interval review Prostate cancer diagnosed by Dr. De Dios 2014 [place] score diagnosis 8 Initial therapy 2 years hormone therapy with radiation - therapy completed 11/11 Associated symptoms of urgency and frequency had been on [facility] in the past Laboratories - 09/17 0.2, 04/19 0.2, 04/20 0.2, 10/20 0.2, 04/21 0.2 Plan - continue to follow Q 6 months [facility] Medical History HTN (hypertension) Diabetes mellitus, type II Nocturia Prostate tumor Prostate cancer Surgical History History of prostate biopsy Review of Systems Const Denies chills and Denies fever(s) Card Reports no additional complaints and Denies syncope Resp Denies cough GI Denies abdominal pain and Denies heartburn Reports as per HPI and Denies change in libido Neuro Denies syncope Psych Denies change in libido Endo Denies change in libido Physical Exam Const General: cooperative, healthy appearing, comfortable and no acute distress Orientation/consciousness: patient oriented x3 HEENT Face and sinus: Yes normal facial exam Mouth: moist mucous membranes Neck Neck: Yes normal visual inspection, Yes full ROM and Yes trachea midline Chest Chest palpation & inspection: normal inspection of the chest Resp Effort & Inspection: normal respiratory effort, able to speak in complete sentences and no respiratory distress GI Inspection: Yes normal to inspection Back/Spine/Pelvis Cervical Spine: normal cervical lordosis Thoracic/Lumbar Spine: thoracic and lumbar spine normal to inspection Skin General skin exam: no rashes or lesions noted Neuro General: patient oriented x3, gait normal, tone normal and moves all extremities Extrem General: Yes normal to inspection and Yes capillary refill normal Office Procedures Post Void Residual Post Residual Void Post Void Residual (PVR): 0 36919-Ghdh Void Residual by ultrasound Results AMB Urinalysis, Automated UA Leukoctes 15 Chuy/uL Last Edit by Tri Rob [facility] on 04/13/25 13:35 UA Nitrite Negative Last Edit by Tri Rob [facility] on 04/13/25 13:35 UA Urobilinogen 0.2 mg/dL Last Edit by Tri Rob [facility] on 04/13/25 13:35 UA Protein 15 mg/dL Last Edit by Tri Rob [facility] on 04/13/25 13:35 UA pH 6.0 Last Edit by Tri Rob [facility] on 04/13/25 13:35 UA Blood 10 Virgil/uL Last Edit by Tri Rob [facility] on 04/13/25 13:35 UA Specific Thompson 1.015 Last Edit by Tri Rob [facility] on 04/13/25 13:3 5 UA Ketone Negative Last Edit by Tri Rob [facility] on 04/13/25 13:35 UA Bilirubin 1 mg/dL Last Edit by Tri Rob [facility] on 04/13/25 13:35 UA Glucose 0 mg/dL Last Edit by Tri Rob [facility] on 04/13/25 13:35 Results Reviewed Results Reviewed: Laboratory Last Values Urine pH (Auto) 6.0 04/13/25 13:34 Specific Thompson (Auto) 1.015 04/13/25 13:34 Urine Protein (Auto) 15 mg/dL 04/13/25 13:34 Glucose (UA)(Auto) 0 mg/dL 04/13/25 13:34 Urine Ketones (Auto) Negative 04/13/25 13:34 Urine Blood (Auto) 10 Virgil/uL 04/13/25 13:34 Urine Nitrite (Auto) Negative 04/13/25 13:34 Urine Bilirubin (Auto) 1 mg/dL 04/13/25 13:34 Urine Urobilinogen (Auto) 0.2 mg/dL 04/13/25 13:34 Leukocyte Esterase (Auto) 15 Chuy/uL 04/13/25 13:34 Assessment & Plan Assessment & Plan (1) Prostate cancer: Comment: High-grade, external beam radiation 2014 Code(s): C61 - Malignant neoplasm of prostate Category: Medical (2) Radiation cystitis: Code(s): N30.40 - Irradiation cystitis without hematuria Category: Medical (3) Nocturia more than twice per night: Code(s): R35.1 - Nocturia Category: Medical Plan Twelve month follow-up Refill medications Orders: Orders Prostate Specific Antigen 12 Months C61 - Malignant neoplasm of prostate Medications: Refilled vibegron 75 mg PO DAILY 90 tabs 1RF 90 days N32.89 - Other specified disorders of bladder Discontinued solifenacin Discontinued Reason: Patient Completed Course 5 mg PO DAILY 90 days 90 tabs 1RF Patient Instructions: This note is constructed using voice recognition software. While every effort has been made to ensure accuracy data warehouse administrator errors may have been included. Imaging studies, laboratory and physical exam results were discussed and reviewed in detail. No major barriers to patient understanding were identified. An opportunity to ask questions regarding the treatment plan was provided. All questions were answered. The patient expressed understanding and agreement with the above treatment plan. The patient is aware they should contact our office by phone for worsening of their current condition or the appearance of new urologic symptoms. Compliance is encouraged with any medications and followup testing that is ordered. It is a privilege to participate in the urologic care of your patient. If you have any questions or concerns regarding treatment for the above conditions, or other urologic issues, please do not hesitate to contact me. The office telephone contact is [phone]. Sincerely, Dr Bashir Sharp MD, [facility] - Urology Compassionate Specialist Care for the Genitourinary System Coding Level of Care Code Est Pt Level 3 (83267) Complex EM visit Add On G2211 Diagnoses Prostate cancer C61 Radiation cystitis N30.40 Nocturia more than twice per night R35.1 CPT Codes Post Residual Void - PVR CPT Code: 72955-Snsf Void Residual by ultrasound ([id number])
--- OUTSIDE RECORDS SUMMARY | 2025-04-13 17:07 | XMS_ITS | Encounter Summary ---
Author Organization [facility] Address [address] [place] [address] Care Team Providers Care Director Software Name Role Phone Angelika Man MD Primary Care Provider [phone]- [phone] Kianna Day MD Unavailable [phone] Encounter Details Date Type Department Care Team (Late Contact Info) Description 04/26/2024 Scanned Document [address] [phone] Angelika Man MD [address] [place] [id number] Social History Tobacco Use Types Packs/Day Years Used Date Smoking Tobacco: Former Smokeless Tobacco: Former Comments:quit 30 years Alcohol Use Standard Drinks/Week Comments Yes 0 (1 standard drink = 0.6 oz pur e alcohol) rare PHQ-2 Answer Date Recorded PHQ-2 Total Score 0 11/08/2022 Sex and Gender Information Value Date Recorded Sex Assigned at Not on file Legal Sex Male 5:01 PM EST Gender Identity Not on file Sexual Orientation Not on file documented as of this encounter Plan of Treatment Upcoming Encounters Date Type Department Care Team (Late Contact Info) Description 04/20/2025 12:45 PM EDT Patient Off Site Visit [facility] [address] [phone] Kianna Day MD [address] [place] [phone] 06/17/2025 12:30 PM EST Office Visit [facility] [place] [address] [facility] [address] [place] [phone] Kianna Day MD [address] [facility] [address] [place] [address] documented as of this encounter Visit Diagnoses Not on filedocumented in this encounter Care Teams Director Software Relationship Specialty Start Date End Date Angelika Man MD [address] [facility] [address] [place] [address] PCP - General Internal Medicine 11/08/22 Kianna Day MD [address] [facility] [address] [place] [address] Endocrinology 03/18/25 documented as of this encounter
--- OUTSIDE RECORDS SUMMARY | 2025-04-13 17:07 | XMS_ITS | Clinical Summary ---
Author Organization [facility] Address [address] [place] [address] Care Team Providers Care Clinical Documentation Clerk Name Role Phone Angelika Man MD Primary Care Provider [phone] Kianna Day MD Unavailable Allergies No known active allergies Medications Lancets (OneTouch Delica Plus [id number]) Misc 07/14/19 21 Active Insulin Pen Needle 32G X 4 MM MiscIndications:Ty pe 2 diabetes mellitus without complication, with long-term current use of insulin (HCC) Use every night. 100 pen needle 2 03/16/20 21 Active OneTouch Ultra test stripIndications:D M type 2 with diabetic mixed hyperlipidemia (HCC) Check 3 times a day 300 test strip 3 09/16/19 24 Active Continuous Glucose Provider Relations Representative (Dexcom G7 Provider Relations Representative) DeviceIndications: Type 2 diabetes mellitus with other specified complication, unspecified whether jail insulin use (HCC) Use with sensor 1 each 08/23/19 25 Active Additional Information Patient not taking.Reported on 03/09/2025 amLODIPine (NORVASC) 10 MG tabletIndications: Essential hypertension TAKE 1 TABLET(10 MG) BY MOUTH DAILY 90 tablet 1 11/16/19 25 Active lisinopril (PRINIVIL,ZeSTRIL) 30 MG tabletIndications: Essential hypertension,Type 2 diabetes mellitus without complication, with long-term current use of insulin (HCC) TAKE 1 TABLET(30 MG) BY MOUTH DAILY 90 tablet 2 11/16/19 25 Active metFORMIN (GLUCOPHAGE) 1000 MG tabletIndications: Type 2 diabetes mellitus without complication, with long-term current use of insulin ([facility]),Essential hypertension TAKE 1 TABLET(1000 MG) BY MOUTH TWICE DAILY WITH MEALS 180 tablet 1 02/11/20 25 Active Aspirin Low Dose 81 MG EC tabletIndications: Type 2 diabetes mellitus without complication, with long-term current use of insulin ([facility]),Essential hypertension TAKE ONE TABLET BY MOUTH DAILY. 90 tablet 2 02/11/20 25 Active rosuvastatin (CRESTOR) 20 MG tabletIndications: Type 2 diabetes mellitus without complication, with long-term current use of insulin ([facility]),Essential hypertension,Other hyperlipidemia TAKE 1 TABLET(20 MG) BY MOUTH DAILY 90 tablet 1 02/11/20 25 Active pioglitazone (ACTOS) 30 MG tabletIndications: Type 2 diabetes mellitus without complication, with long-term current use of insulin ([facility]),Essential hypertension TAKE 1 TABLET(30 MG) BY MOUTH DAILY 90 tablet 02/11/20 25 Active Toujeo SoloStar 300 UNIT/ML prefilled pen injectionIndicatio ns:Type 2 diabetes mellitus without complication, with long-term current use of insulin ([facility]) ADMINISTER 30 UNITS UNDER THE SKIN EVERY NIGHT 4.5 mL 3 03/03/20 25 Active Continuous Glucose Sensor (Dexcom G7 Sensor) MiscIndications:Ty pe 2 diabetes mellitus with hyperglycemia, with long-term current use of insulin ([facility]) Use as directed, replace sensor every 10 days 3 each 3 03/09/20 25 Active glipiZIDE (GLUCOTROL) 5 MG tabletIndications: Type 2 diabetes mellitus without complication, with long-term current use of insulin ([facility]) 2 tablets 30 minutes before breakfast and 1 tablet 30 minutes before dinner. 270 tablet 2 03/09/20 25 Active Active Problems Problem Noted Date Diagnosed Date DM type 2 with diabetic mixed hyperlipidemia Assessment & Plan (04/24/2022 2:05 PM EDT): Eye exam done by senior sales engineer in [place].no reported retinopathy. Will request fundal exam report to be sent to me at next exam in Jun 2022 Dyslipidemia 04/24/2022 History of prostate cancer 04/24/2022 Assessment & Plan (04/24/2022 1:57 PM EDT): Remains cancer free since rx with radiation 6 years ago. Sees urology/Dr. Stevenson in [place] every 6 months for EDWIN and labs. Need for influenza vaccination 04/24/2022 Assessment & Plan (04/24/2022 2:00 PM EDT): Reports already having received the vaccine at local pharmacy. Colon cancer screening 04/24/2022 Assessment & Plan (04/24/2022 2:02 PM EDT): Reports having had a colonoscopy in 2018 through [facility] and was told he did not need a repeat study. Screening for abdominal aortic aneurysm 04/24/20 Assessment & Plan (04/24/2022 2:05 PM EDT): Test ordered. Essential hypertension 08/15/2020 Resolved Problems Problem Noted Date Diagnosed Date Resolved Date Need for pneumococcal vaccination 04/24/2022 09/10/2023 Encounters Date Type Department Care Team Description 03/21/2025 1:00 PM EDT Clinical Support [facility] Endocrinology [address] [address] Fabian Durant RN 03/21/2025 Travel 03/17/2025 Scanned Document [facility] Endocrinology [address] [place] [address] Endocrinology, Scan 03/09/2025 4:30 PM EDT Consult [facility] Endocrinology [address] [place] [address] Angelika Man MD [facility] Type 2 diabetes mellitus with hyperglycemia, with long-term current use of insulin (HCC) (Primary Dx); Essential hypertension ; Type 2 diabetes mellitus without complication, with long-term current use of insulin (HCC) 03/09/2025 Travel 03/09/2025 Orders Only [address] [place] [address] Angelika Man MD 03/08/2025 Telephone [address] [place] [address] Angelika Man MD 03/06/[address] [phone] Angelika Man MD 03/04/2025 Telephone [id number] [place] [address] Provider, [facility] External Data AC PATIENT NEEDS SCHEDULING 03/03/2025 3:00 PM EDT Clinical Support [address] [phone] Sharmin Young, [place] Type 2 diabetes mellitus with hyperglycemia, with long-term current use of insulin (HCC) (Primary Dx); Type 2 diabetes mellitus without complication, with long-term current use of insulin (HCC) 03/03/2025 Travel 03/02/2025 3:15 PM EDT Office Visit [address] [phone] Angelika Man MD Essential hypertension (Primary Dx); Hyperlipidemia, unspecified hyperlipidemia type ; Type 2 diabetes mellitus with hyperglycemia, with long-term current use of insulin (HCC); History of prostate cancer 03/02/2025 Orders Only [address] [address] Angelika Man MD Leukocytosis, unspecified type (Primary Dx) 03/02/2025 Travel 02/25/2025 Orders Only [address] [phone] Angelika Man MD Type 2 diabetes mellitus with hyperglycemia, with long-term current use of insulin (HCC) (Primary Dx) 02/10/[address] [address] Angelika Man MD Type 2 diabetes mellitus without complication, with long-term current use of insulin (HCC); Essential hypertension ; Other hyperlipidemia from Last 3 Months Immunizations Immunization Administration Dates Next Due Pneumococcal Conjugate 20-Valent [...] Sign Reading Time Taken Comments Blood Pressure 145/81 03/09/2025 4:15 PM EDT Pulse 78 03/21/2025 1:03 PM EDT Temperature 36.6 C (97.8 F) 03/02/2025 2:55 PM EDT Respiratory Rate 16 03/02/2025 2:55 PM EDT Oxygen Saturation 98% 03/09/2025 4:15 PM EDT Inhaled Oxygen Concentration - - Weight 78 kg (172 lb) 03/21/2025 1:03 PM EDT Height 180.3 cm (5' 11 ) 03/21/2025 1:03 PM EDT Body Mass Index 23.99 03/21/2025 1:03 PM EDT Plan of Treatment Upcoming Encounters Date Type Department Care Team (Late st Contact Info) Description 04/20/2025 12:45 PM EDT Patient Off Site Visit [facility] Endocrinology [address] [place] [phone] Kianna Day MD [address] [place] [address] [address] [place] [address] 06/17/2025 12:30 PM EST Office Visit [facility] Endocrinology [place] [address] [phone] Kianna Day MD [address] [place] [address] Health Maintenance Due Date Last Done Comments Advance Care Planning 1950 Hepatitis C Virus Screening 1950 Ophthalmology Exam 1961 DTaP/Tdap/Td Vaccines (1 - Tdap) 1970 RSV Vaccine 50 years and older and Patients (1 - Risk 50-74 years 1-dose series) 2001 Zoster (Shingles) Vaccine (1 of 2) 2001 Abdominal Aortic Aneurysm (AAA) Screening 2016 Diabetic Self-Management Training (DSMT) 08/15/2020 Annual Wellness Visit 11/09/2023 11/08/2022 , 09/11/2021, 09/05/2020 Physical 11/09/2023 11/08/2022, 08/28, 09/05/2020 Medical Nutrition Therapy (MNT) 06/30/2024 Microalbumin/Creatinine Ratio Urine 12/04/2024 12/05/2023 Influenza Vaccine 01/28/2025 COVID-19 Vaccine ( season) 2025 Hemoglobin A1C 05/26/2025 02/23/2025, 10/0 01/2024, 12/10/2023, Additional history exists Creatinine with GFR 02/23/2026 02/23/2025, 04/06/2024, 12/05/2023, Additional history exists Lipid Panel 02/23/2026 02/23/2025, 06/0 12/2023, 01/02/2023, Additional history exists Foot Exam 03/09/2026 03/09/2025, 02/28, 03/09/2025, Additional history exists Colonoscopy 07/04/2027 07/04/2017 (Prev iously Completed) Pneumococcal Vaccines 50+ Completed 04/24/2022 Hepatitis B Vaccines Aged Out No long er eligible based on patient's age to complete this topic Procedures Procedure Name Priority Date/Time Associated Diagnosis Comments COMPLETE BLOOD COUNT, WITH DIFFERENTIAL Routine 02/23/2025 1:56 PM EDT Type 2 diabetes mellitus with other specified complication, unspecified whether ocean transportation intermediary insulin use (HCC) LIPID PANEL REFLEX DIRECT LDL Routine 02/23/2025 1:56 PM EDT Type 2 diabetes mellitus with other specified complication, unspecified whether ocean transportation intermediary insulin use (HCC) COMPREHENSIVE METABOLIC PANEL Routine 02/23/2025 1:56 PM EDT Type 2 diabetes mellitus with other specified complication, unspecified whether jail insulin use (HCC) HEMOGLOBIN A1C Routine 02/23/2025 1:56 PM EDT Type 2 diabetes mellitus with other specified complication, unspecified whether ocean transportation intermediary insulin use (HCC) MICROALBUMIN, CREATININE, URINE, RANDOM Routine 12/05/2023 2:47 PM EDT Type 2 diabetes mellitus with other specified complication, unspecified whether jail insulin use (HCC) from Last 3 Months or Most Recently Relevant to Health Maintenance Results * Lipid Panel Reflex Direct LDL (02/23/2025 1:56 PM EDT) [facility] Cholesterol, Total 127 <200 mg/dL [facility] Cholesterol, HDL 53 > OR = 40 mg/dL [facility] Triglycerides 89 <150 mg/dL [facility] LDL Cholesterol 57 mg/dL (calc) [facility] Comment: Reference range: <100 Desirable range <100 mg/dL for primary prevention; <70 mg/dL for patients with CHD or diabetic patients with > or = 2 CHD risk factors. LDL-C is now calculated using the Artem-Maira calculation, which is a validated novel method providing better accuracy than the Friedewald equation in the estimation of LDL-C. Artem SS et al. SHIRIN. 2013;310(19): 7286-6564 (http://education.[employer]/faq/ZGR869) Cholesterol/HDL Ratio 2.4 <5.0 (calc) [facility] Non HDL Chol. (LDL+VLDL) 74 <130 mg/dL (calc) [facility] Comment: For patients with diabetes plus 1 major ASCVD risk factor, treating to a non-HDL-C goal of <100 mg/dL (LDL-C of <70 mg/dL) is considered a therapeutic option. Blood Blood specimen / Unknown 02/23/2025 1:56 PM EDT 02/23/2025 1:57 PM EDT Narrative [facility] - 02/24/2025 5:44 AM EDT FASTING:YES FASTING: YES Angelika Man MD LAB BLOOD ORDERABLES Final Result [employer] [address] [place] [phone] * (ABNORMAL) Complete Blood Count, with Differential (02/23/2025 1:56 PM EDT) White Blood Cell Count 12.5(H) 3.8 - 10.8 Thousand/ uL [facility] Red Blood Cell Count 4.71 4.20 - 5.80 Million/u L [facility] Hemoglobin 13.0(L) 13.2 - 17.1 g/dL [facility] Hematocrit 40.5 38.5 - 50.0 % [facility] [employer] MCV 86.0 80.0 - 100.0 fL [facility] MCH 27.6 27.0 - 33.0 pg [facility] [employer] MCHC 32.1 32.0 - 36.0 g/dL [facility] Comment: For adults, a slight decrease in the calculated MCHC value (in the range of 30 to 32 g/dL) is most likely not clinically significant; however, it should be interpreted with caution in correlation with other red cell parameters and the patient's clinical condition. RDW 13.1 11.0 - 15.0 % [facility] [employer] Platelet Count 417(H) 140 - 400 Thousand/ uL [facility] MPV 9.9 7.5 - 12.5 fL [facility] Abs Neutrophils Auto 8,325(H) 1,500 - 7,800 cells/uL [facility] Abs Lymphocytes Auto 2,863 850 - 3,900 cells/uL [facility] [employer] Abs Monocytes Auto 1,063(H) 200 - 950 cells/uL [facility] [employer] Abs Eosinophils Auto 175 15 - 500 cells/uL [facility] Abs Basophils Auto 75 0 - 200 cells/uL [facility] Neutrophils Auto 66.6 % [facility] Lymphocytes Auto 22.9 % [facility] Monocytes Auto 8.5 % [facility] Eosinophils Auto 1.4 % [facility] [employer] Basophils Auto 0.6 % [facility] [employer] Blood 02/23/2025 1:56 PM EDT 02/23/2025 1:57 PM EDT Narrative [facility] - 02/24/2025 5:44 AM EDT FASTING:YES FASTING: YES us Angelika Man MD LAB BLOOD ORDERABLES Final Result [facility] [address] [place] [address] * (ABNORMAL) Hemoglobin A1C (02/23/2025 1:56 PM EDT) Hemoglobin A1C 11.6(H) <5.7 % [facility] Comment: For someone without known diabetes, a [...] A1c for diagnosis of diabetes for children. Blood 02/23/2025 1:56 PM EDT 02/23/2025 1:57 PM EDT Narrative [facility] - 02/24/2025 5:44 AM EDT FASTING:YES FASTING: YES us Angelika Man MD LAB BLOOD ORDERABLES Final Result [employer] [address] [place] [phone] * (ABNORMAL) Comprehensive Metabolic Panel (02/23/2025 1:56 PM EDT) Glucose 180(H) 65 - 99 mg/dL [facility] Comment: Fasting reference interval For someone without known diabetes, a glucose value >125 mg/dL indicates that they may have diabetes and this should be confirmed with a follow-up test. Blood Urea Nitrogen (BUN) 19 7 - 25 mg/dL [facility] Creatinine 0.95 0.70 - 1.28 mg/dL [facility] Creatinine w/ eGFR 85 > OR = 60 mL/min/1. 73m2 [facility] BUN/Creatinine Ratio SEE NOTE: 6 - 22 (calc) [facility] Comment: Not Reported: BUN and Creatinine are within reference range. Sodium 136 135 - 146 mmol/L [facility] Potassium 4.5 3.5 - 5.3 mmol/L [facility] Chloride 97(L) 98 - 110 mmol/L [facility] CO2 31 20 - 32 mmol/L [facility] Calcium 10.2 8.6 - 10.3 mg/dL [facility] Protein, Total 6.7 6.1 - 8.1 g/dL [facility] Albumin 4.2 3.6 - 5.1 g/dL [facility] Globulin 2.5 1.9 - 3.7 g/dL (calc) [facility] Albumin/Globuli n Ratio 1.7 1.0 - 2.5 (calc) [facility] Bilirubin, Total 0.5 0.2 - 1.2 mg/dL [facility] Alkaline Phosphatase 65 35 - 144 U/L [facility] Aspartate Aminotrans (AST) 14 10 - 35 U/L [facility] Alanine Aminotrans (ALT) 16 9 - 46 U/L [facility] Blood 02/23/2025 1:56 PM EDT 02/23/2025 1:57 PM EDT Narrative [facility] - 02/24/2025 5:44 AM EDT FASTING:YES FASTING: YES Angelika Man MD LAB BLOOD ORDERABLES Final Result Performing Organization Address [facility] Co de Phone Number [employer] [address] [place] [address] * Microalbumin, Creatinine, Urine, Random (12/05/2023 2:47 PM EDT) Pathologist [facility] Creatinine, Urine, Random 84 20 - 320 mg/dL [facility] Microalbumin, Urine, Random 0.5 See Note: mg/dL [facility] Comment: Reference Range: Reference Range Not established Microalbumin/Creat inine Ratio 6 <30 mg/g creat [facility] Comment: The ADA defines abnormalities in albumin excretion as follows: Albuminuria Category Result (mg/g creatinine) Normal to Mildly increased <30 Moderately increased 30-299 Severely increased > OR = 300 The ADA recommends [...] FASTING: YES Angelika Man MD URINE ORDERABLES Final Res ult Performing Organization Address [facility] de Phone Number [employer] [address] [place] [address] from Last 3 Months or Most Recently Relevant to Health Maintenance Insurance [facility] MEDICARE MEDICARE PART A & B Care Teams Clinical Documentation Clerk Relationship Specialty Start Date End Date Angelika Man MD [address] [place] [address] PCP - General Internal Medicine 11/08/22 Kianna Day MD [address] [place] [address] Endocrinology 03/18/25
--- OUTSIDE RECORDS SUMMARY | 2025-04-13 17:07 | XMS_ITS | Encounter Summary ---
[place] [address] Care Team Providers Care Skull Chopper Name Role Phone Angelika Man MD Primary Care Provider + [phone] Kianna Day MD Unavailable [phone] Reason for Visit * Reason Comments Appointment Encounter Details Date Type Department Care Team (Late Contact Info) Description 04/12/[address] [address] Jamshid Tom MD [address] [place] [address] Appointment Social History Tobacco Use Types Packs/Day [...] 12:45 PM EDT Patient Off Site Visit [facility] Endocrinology [address] [place] [address] Kianna Day MD [address] [place] [phone] 06/17/2025 12:30 PM EST Office Visit [facility] Endocrinology [place] 100 [facility] [address] [place] [address] Kianna Day MD [address] [facility] [address] [place] [address] documented as of this encounter Visit Diagnoses Not on filedocumented in this encounter Care Teams Skull Chopper Relationship Specialty Start Date End Date Angelika Man MD [address] [address] PCP - General Internal Medicine 11/08/22 Kianna Day MD 100 [facility] [address] [place] [address] Endocrinology 03/18/25 documented as of this encounter
--- OUTSIDE RECORDS SUMMARY | 2025-04-13 17:07 | XMS_ITS | Encounter Summary ---
Author Organization [address] [address] Care Team Providers Care Lay Brother Name Role Phone Angelika Man MD Primary Care Provider [phone] Kianna Day MD Unavailable [phone] Reason for Visit * Reason Comments ac patient needs scheduling Encounter Details Date Type Department Care Team (Late Contact Info) Description 08/23/[address] [phone] Provider, Generic ac patient needs scheduling Social [...] Notes * Telephone Encounter - Roberto Carlos Rmoo - 08/26/2024 10:53 AM EST Patient declined scheduling. documented in this encounter Plan of Treatment Upcoming Encounters Date Type Department Care Team (Late Contact Info) Description 04/20/2025 12:45 PM EDT Patient Off Site Visit [facility] Endocrinology [address] [place] [phone] Kianna Day MD [address] [address] 06/17/2025 12:30 PM EST Office Visit [facility] Endocrinology [place] [address] [address] Kianna Day MD [address] [address] documented as of this encounter Visit Diagnoses Not on filedocumented in this encounter Care Teams Lay Brother Relationship Specialty Start Date End Date Angelika Man MD [address] [address] PCP - General Internal Medicine 11/08/22 Kianna Day MD [address] [address] Endocrinology 03/18/25 documented as of this encounter
--- OUTSIDE RECORDS SUMMARY | 2025-04-13 17:07 | XMS_ITS | Data Portability ---
Author Organization [place] - [facility], Allergy Address [address] [place] [phone] Care Team Providers Care Disulfurizer Tender Name Role Phone DIEGO ANGELES Primary Care Provider [phone] Assessment No assessment recorded. Plan of Treatment Reminders Order Date Submit Date Provider Last Modified By Organization Details Last Modified Time Details Appointments None record ed. Lab None record ed. Referral None record ed. Procedures None record ed. Surgeries None record ed. Imaging None record ed. Medication Orders None record ed. Patient TargetsNo targets recorded. Patient InstructionsNo instructions recorded. Reason for Referral None Reported. Problems Name Problem SNOMED Code Status Onset Date Resolution Date Notes Provider Name and Address Organization Details Recorded Time Impacted cerumen in left ear 114590269963296 1 Active 2023 MILES España MD [address] [place] [address] [address], [place], [phone], [facility] 4 13:19:09 Problem Notes None recorded. Procedures Surgical History Date Name Laterality Status Provider Name and Address Organization Details Recorded Time 4 Cerumen removal without microscope completed MILES WYNNE MD [address] [place] [address], [phone], [facility] - [facility] 05/19/2024 13:22:30 Imaging Results None recorded. Procedure Notes None recorded. Medical Equipment None Reported. Medications Name Sig Start Date Stop Date Status Note LastModified by Organization Details LastModified Time OneTouch Ultra Test strips active Not Available Not Available Not Available amlodipine 10 mg tablet active Not Available Not Available No t Available cephalexin 500 mg capsule active Not Available Not Available N ot Available metformin 1,000 mg tablet active Not Available Not Available Not Available lisinopril 30 mg tablet active Not Available Not Available No t Available pioglitazone 30 mg tablet active Not Available Not Available Not Available glipizide 5 mg tablet active Not Available Not Available Not Available rosuvastatin 20 mg tablet active Not Available Not Available Not Available Claude Juarez U-300 Insulin 300 unit/mL (1.5 mL) subcutaneous pen active Not Available Not Available Not Available Vitals Date Recorded Body height Body mass index (BMI) Body weight Provider Name and Address Organization Details Last Updated DateTime 05/19/2024 180.34 cm 23.7 kg/m2 05966.7 g Waqas Bagley [place] - [facility] 05/19/2024 13:10:07 Social History None recorded. Functional Status None recorded. Mental Status None recorded. Family History Nothing Reported. Medical History No medical history recorded. Past Encounters Encounter ID Performer Location Encounter Start Date Encounter Closed Date Diagnosis/Indication Diagnosis SNOMED-CT Code Diagnosis ICD10 Code Diagnosis IMO Codes Diagnosis Note [id number] MILES WYNNE MD [facility] [address] [address] 05/19/2024 12:45:03 05/19/2024 13:21:44 Impacted cerumen in left ear [id number] H61.22 Recurrent Cerumen Impactions : Ears were meticulous ly cleaned bilaterall y today with a curette and suction. The patient tolerated this well and will follow up for repeat debridemen t per routine. Health Concerns Section Related Observation LastModified by Organization Detai ls LastModified Time None Recorded Concern Status LastModified by Organization Details LastModified Time None Recorded Advance Directives Directive None Recorded Payers Insurance Date Sequence Insurance Name Policy Number Policy Eason Covered Member ID Eason Member ID Guarantor Name 05/19/2024 1 [facility] (MEDICARE REPLACEMENT/ ADVANTAGE - PPO) [id number] Pritesh Vivas [id number] Pritesh Vivas Notes Date Note Type Note Provider Name and Address Organization Details Recorded Time 05/19/2024 text/html ROS as noted in the HPI He presents with a sensation in his left ear. sometimes when he pushes on his tragus he feels a squishing sound. Denies problems hearing. Denies tinnitus. MILES WYNNE MD [address] [place] [address], [phone], [facility] - [facility] 05/19/2024 13:22:47
--- OUTSIDE RECORDS SUMMARY | 2025-04-13 17:07 | XMS_ITS | Encounter Summary ---
[place] [address] Care Team Providers Care Ink Grinder Name Role Phone Angelika Man MD Primary Care Provider [phone] Kianna Day MD Unavailable [phone] Encounter Details Date Type Department Care Team (Late st Contact Info) Description 03/17/2025 Scanned Document [facility] Endocrinology [address] [phone] Endocrinology, Scan Social History Tobacco Use Types Packs/Day Years [...] 12:45 PM EDT Patient Off Site Visit [facility] Endocrinology [address] [phone] Kianna Day MD [address] [place] [id number] 06/17/2025 12:30 PM EST Office Visit [facility] Endocrinology [address] [phone] Kianna Day MD [address] [place] [address] documented as of this encounter Visit Diagnoses Not on filedocumented in this encounter Care Teams Ink Grinder Relationship Specialty Start Date End Date Angelika Man MD [address] [place] [address] PCP - General Internal Medicine 11/08/22 Kianna Day MD [address] [place] [id number] Endocrinology 03/18/25 documented as of this encounter
--- OUTSIDE RECORDS SUMMARY | 2025-04-13 17:07 | XMS_ITS ---
Author Name [facility] Organization Unknown Results Test Name/Text Value Interpretation Date Range Source MCV RBC Auto 86.0 fL Normal 02/24/2025 80 - 100 [facility] Hct VFr Bld Auto 40.5 % Normal 02/24/2025 38.5 - 50 QU EST Eosinophil NFr Bld Auto 1.4 % Normal 02/24/2025 [facility] MCHC RBC Auto-EntMCnc 32.1 g/dL Normal 02/24/2025 32 - 36 [facility] MCH RBC Qn Auto 27.6 pg Normal 02/24/2025 27 - [address] Neutrophils NFr Bld Auto 66.6 % Normal 02/24/2025 [facility] Neutrophils # Bld Auto 8325.0 cells/uL Above high normal 1500 - 7800 [facility] RBC # Bld Auto 4.71 Million/uL Normal 02/24/2025 4.2 - 5. 8 [facility] Monocytes # Bld Auto 1063.0 cells/uL Above high normal 02/24 200 - 950 [facility] Platelet # Bld Auto 417.0 Thousand/uL Above high normal 02/24/2025 140 - 400 [facility] PMV Bld Georgi-Arelis 9.9 fL Normal 02/24/2025 7.5 - 12.5 [facility] Lymphocytes # Bld Auto 2863.0 cells/uL Normal 02/24/2025 850 - 3900 [facility] Basophils NFr Bld Auto 0.6 % Normal 02/24/2025 [facility] Erythrocyte DistWidth Bld Auto 13.1 % Normal 02/24/2025 11 - 15 [facility] Hgb Bld-mCnc 13.0 g/dL Below low normal 02/24/2025 13.2 - 17 .1 [facility] Lymphocytes NFr Bld Auto 22.9 % Normal 02/24/2025 [facility] Monocytes NFr Bld Auto 8.5 % Normal 02/24/2025 [facility] Eosinophil # Bld Auto 175.0 cells/uL Normal 02/24/2025 15 - 500 [facility] Basophils # Bld Auto 75.0 cells/uL Normal 02/24/2025 0 - 200 [facility] WBC # Bld Auto 12.5 Thousand/uL Above high normal 02/24/2025 3.8 - 10.8 [facility] HbA1c MFr Bld 11.6 % Above high normal 02/24/2025 - 5.7 [facility] Potassium SerPl-sCnc 4.5 mmol/L Normal 02/24/2025 3.5 - 5 .3 [facility] BUN SerPl-mCnc 19.0 mg/dL Normal 02/24/2025 7 - [address] Chloride SerPl-sCnc 97.0 mmol/L Below low normal 02/24/2025 98 - 110 [facility] BUN/Creat SerPl SEE NOTE: 02/24/2025 6 - [address] Glucose SerPl-mCnc 180.0 mg/dL Above high normal 02/24/2025 65 - 99 [facility] Calcium SerPl-mCnc 10.2 mg/dL Normal 02/24/2025 8.6 - 10. 3 [facility] ALP SerPl-cCnc 65.0 U/L Normal 02/24/2025 35 - 144 [facility] Albumin SerPl-mCnc 4.2 g/dL Normal 02/24/2025 3.6 - 5.1 [facility] Prot SerPl-mCnc 6.7 g/dL Normal 02/24/2025 6.1 - 8.[address] AST SerPl-cCnc 14.0 U/L Normal 02/24/2025 10 - 35 [facility] Globulin Ser Calc-mCnc 2.5 g/dL (calc) Normal 02/24/2025 1.9 - 3.7 [facility] CO2 SerPl-sCnc 31.0 mmol/L Normal 02/24/2025 20 - 32 [facility] Bilirub SerPl-mCnc 0.5 mg/dL Normal 02/24/2025 0.2 - 1.2 [facility] eGFRcr SerPlBld CKD-EPI 2020 85.0 mL/min/1.73m2 Normal 02/24/2025 - [facility] ALT SerPl-cCnc 16.0 U/L Normal 02/24/2025 9 - 46 [facility] Creat SerPl-mCnc 0.95 mg/dL Normal 02/24/2025 0.7 - 1.28 [facility] Albumin/Glob SerPl 1.7 (calc) Normal 02/24/2025 1 - 2.5 [facility] Sodium SerPl-sCnc 136.0 mmol/L Normal 02/24/2025 135 - 14 6 [facility] LDLc SerPl Calc-mCnc 57.0 mg/dL (calc) Normal 02/24/2025 [facility] Trigl SerPl-mCnc 89.0 mg/dL Normal 02/24/2025 - 150 [facility] Cholest SerPl-mCnc 127.0 mg/dL Normal 02/24/2025 - 200 [facility] Cholest/HDLc SerPl 2.4 (calc) Normal 02/24/2025 - 5 [facility] HDLc SerPl-mCnc 53.0 mg/dL Normal 02/24/2025 - QU EST NonHDLc SerPl-mCnc 74.0 mg/dL (calc) Normal 02/24/2025 - 130 [facility] History of Medication Use Medication Directions Dispensed Refills Start Date End Date Stat us glipiZIDE (GLUCOTROL) 5 MG tablet TAKE 1 TABLET(5 MG) BY MOUTH TWICE DAILY BEFORE MEALS 11/15/2024 active cephalexin (KEFLEX) 500 MG capsule Take 1 capsule (500 mg total) by mouth 4 (four) times a day. 04/09/2024 active pioglitazone (ACTOS) 30 MG tablet TAKE 1 TABLET(30 MG) BY MOUTH DAILY 12/11/2022 active Toujeo SoloStar 300 UNIT/ML prefilled pen injection ADMINISTER 25 UNITS UNDER THE SKIN EVERY NIGHT 11/08/2022 active amLODIPine (NORVASC) 10 MG tablet TAKE 1 TABLET(10 MG) BY MOUTH DAILY 09/14/2022 active Aspirin Low Dose 81 MG EC tablet TAKE ONE TABLET BY MOUTH DAILY. 09/14/2022 active glipiZIDE (GLUCOTROL) 5 MG tablet Take 1 tablet (5 mg total) by mouth 2 (two) times a day before meals. 09/14/2022 active lisinopril (PRINIVIL,ZeSTRIL) 30 MG tablet TAKE 1 TABLET(30 MG) BY MOUTH DAILY 09/14/2022 active metFORMIN (GLUCOPHAGE) 1000 MG tablet Take 1 tablet (1,000 mg total) by mouth 2 (two) times a day with meals. 09/14/2022 active rosuvastatin (CRESTOR) 20 MG tablet Take 1 tablet (20 mg total) by mouth daily. 09/14/2022 active ivi.ruuch Ultra test strip Check 3times a day 07/14/2020 active Problems Problem Status Onset Date Problem Type Date of Resolution Source DM type 2 with diabetic mixed hyperlipidemia active 2022-04-24 ProblemAct [facility] Dyslipidemia active 2022-04-24 ProblemAct [facility] Screening for abdominal aortic aneurysm active 2022-04-24 ProblemAct [facility] Need for influenza vaccination active 2022-04-24 ProblemAct [facility] Type 2 diabetes mellitus without complication, with long-term current use of insulin (HCC) active EncounterDiagnosisAct HH CCT Type 2 diabetes mellitus with hyperglycemia, with long-term current use of insulin (HCC) active EncounterDiagnosisAct CCT History of prostate cancer active 2022-04-24 ProblemAct [facility] Colon cancer screening active 2022-04-24 ProblemAct [facility] Essential hypertension active 2020-08-15 ProblemAct HHT Immunizations Vaccine Date Source Lot Number Status Pneumococcal Conjugate 20-[facility]ent 04/24/20[id number] completed Pneumococcal Conjugate 20-Valent 04/24/2022 [id number] completed Encounters Encounter Type Encounter Reason Primary Diagnosis Location Date Ambulatory [facility] 03/21/2025 Ambulatory Type 2 diabetes mellitus with hyperglycemia Type 2 diabetes mellitus with hyperglycemia [facility] 03/09/2025 Ambulatory Type 2 diabetes mellitus with hyperglycemia Type 2 diabetes mellitus with hyperglycemia [facility] 03/03/2025 Ambulatory Essential (primary) hypertension Essential (primary) hypertension [facility] 03/02/2025 Ambulatory Type 2 diabetes mellitus with other specified complication Type 2 diabetes mellitus with other specified complication [facility] 08/17/2024 Ambulatory Type 2 diabetes mellitus with other specified complication Type 2 diabetes mellitus with other specified complication [facility] 04/12/2024 Ambulatory Type 2 diabetes mellitus with other specified complication Type 2 diabetes mellitus with other specified complication [facility] 12/10/2023 Ambulatory Type 2 diabetes mellitus with other specified complication Type 2 diabetes mellitus with other specified complication [facility] 08/08/2023 Ambulatory [facility] 2022 Ambulatory Type 2 diabetes mellitus with other specified complication Type 2 diabetes mellitus with other specified complication [facility] 03/11/2023 Ambulatory Encounter for general adult medical examination without abnormal findings [facility] 11/08/2022 Ambulatory Essential (prima ry) hypertension [facility] 04/24/2022 Ambulatory Encounter for general adult medical examination without abnormal findings [facility] 09/11/2021 Ambulatory Type 2 diabetes mellitus without complications [facility] 08/13/2021 Ambulatory Male erectile dysfunction, unspecified [facility] 04/12/2021 Care Team Organization Name Specialty Phone Email Start Date End Da te [facility] Angelika Man Primary Care 03/02/2025 [facility] 07/20/2023 [facility] 03/17/2023 [facility] Angelika Man Primary [facility] 11/08/202203/11 [facility] Angelika Man Primary [facility] 11/08/2022 [facility] MARY SOLOMON Primary Care 04/24/2022 [facility] MARY SOLOMON Primary [facility] 04/12/2021 04/24/20 [facility] Gerard Walsh Primary Care 04/12/2021 [facility] Angelika Man Primary [facility]
--- OUTSIDE RECORDS SUMMARY | 2025-04-13 17:07 | XMS_ITS | Encounter Summary ---
[place] [address] Care Team Providers Care Bobbin Cleaning Machine Operator Name Role Phone Angelika Man MD Primary Care Provider [phone] Kianna Day MD Unavailable [phone] Reason for Visit * Reason Onset Date Comments AC PATIENT NEEDS SCHEDULING 03/04/2025 Encounter Details Date Type Department Care Team (Late Contact Info) Description 03/04/[address] [phone] Provider, Generic External Data AC PATIENT NEEDS SCHEDULING Social History Tobacco Use Types Packs/Day Years [...] Telephone Encounter - Roberto Carlos Romo - 03/15/2025 11:37 AM EDT Left message to schedule documented in this encounter Plan of Treatment Upcoming Encounters Date Type Department Care Team (Late st Contact Info) Description 04/20/2025 12:45 PM EDT Patient Off Site Visit [facility] Endocrinology [address] [phone] Kianna Day MD [address] [facility] [address] [place] [address] 06/17/2025 12:30 PM EST Office Visit [facility] Endocrinology [place] [address] [place] [phone] Kianna Day MD [address] [facility] [address] [place] [address] documented as of this encounter Visit Diagnoses Not on filedocumented in this encounter Care Teams Bobbin Cleaning Machine Operator Relationship Specialty Start Date End Date Angelika Man MD [address] [facility] [address] [place] [address] PCP - General Internal Medicine 11/08/22 Kianna Day MD [address] [facility] [address] [place] [address] Endocrinology 03/18/25 documented as of this encounter
== END 2025-04-13 13:59 | disposition home or self-care (01) ==
LOC: HO.HUSH 13:27
PROVIDERS: PCP Internal Medicine; Visit Provider Urology
DX: C61 Malignant neoplasm of prostate (principal); N30.40 Irradiation cystitis without hematuria; R35.1 Nocturia
CPT/HCPCS: 99213; G2211

== ENCOUNTER → 2025-04-13 13:27 | Outpatient (BNVA) | payer MEDICARE, SELFPAY | PROVIDERS: PCP Internal Medicine; Visit Provider Urology | DX: R35.1 Nocturia (principal); N30.40 Irradiation cystitis without hematuria; C61 Malignant neoplasm of prostate | CPT/HCPCS: 51798; 99212 ==